=== PATIENT | female | born 1955 | race Caucasian/White ===

== ENCOUNTER → 2017-10-03 | Outpatient (CLI) | payer MEDICARE, MEDICAID ==
[~2017-10-03] MED LIST: AMLO10TA80 PO; DIVA500T PO; FAMO40TA7 PO; FERR-63 PO; IBUP-779 PO; LEVO150T8 PO; NYST15CR2 TP
== END | disposition home or self-care (01) ==
LOC: US 07:17
PROVIDERS: ATTEND Internal Medicine Gastroenterology
DX: K76.0 Fatty (change of) liver, not elsewhere classified (principal); Z90.49 Acquired absence of other specified parts of digestive tract
CPT/HCPCS: 76700